=== PATIENT | male | born 1955 | race Caucasian/White ===

== ENCOUNTER → 2017-08-29 | Outpatient (CLI) | payer OTHER ==
[2017-08-29 07:34] LABS: Basophils % (A) 0 %; CHCM 32.5; Eosinophils # (A) 0.1 k/uL (0-0.7); Eosinophils % (A) 1 %; HCT 50.6 % (39.0-53.0); HDW 2.36; Luc # (Auto) 0.08; Luc % (Auto) 2; Lymphocytes # (A) 1.7 k/uL (1.0-4.8); Lymphocytes % (A) 32 %; MCH 30.4 pg (25.0-35.0); MCHC 31.6 g/dL (31.0-37.0); Mean Platelet Volume 6.9; Monocytes # (A) 0.4 k/uL (0-1.0); Monocytes % (A) 7 %; Neutrophils # (A) 3.2 k/uL (1.3-7.7); Neutrophils % (A) 58 %; RBC 5.27 m/uL (4.30-5.90); WBC 5.4 k/uL (3.8-10.6); WBC (Perox) 4.85
[2017-08-29 07:44] LABS: ALT 43 U/L (21-72); AST 23 U/L (17-59); Alkaline Phosphatase 85 U/L (38-126); Anion Gap 9 mmol/L; Blood Urea Nitrogen 18 mg/dL (9-20); Calcium 9.7 mg/dL (8.4-10.2); Carbon Dioxide 26 mmol/L (22-30); Chloride 106 mmol/L (98-107); Cholesterol 174 mg/dL (<200); Glucose 115 mg/dL (74-99); HDL Cholesterol 66 mg/dL (40-60); Non-African American GFR(MDRD) >60 (>60 ml/min/1.73 sqM); Sodium 141 mmol/L (137-145); Total Bilirubin 0.7 mg/dL (0.2-1.3); Total Protein 7.6 g/dL (6.3-8.2)
== END | disposition home or self-care (01) ==
LOC: LABWHC1 06:54
PROVIDERS: ATTEND Internal Medicine Geriatric Medicine
DX: I10 Essential (primary) hypertension (principal); E11.65 Type 2 diabetes mellitus with hyperglycemia; E78.5 Hyperlipidemia, unspecified
CPT/HCPCS: 36415; 80053; 80061; 83036; 84439; 84443; 85025

== ENCOUNTER → 2018-05-14 | Outpatient (CLI) | payer OTHER ==
--- NOTE | 2018-05-14 14:42 | XR ---
EXAMINATION TYPE: XR wrist complete RT DATE OF EXAM: 05/14/2018 COMPARISON: NONE HISTORY: Pain TECHNIQUE: 4 views submitted FINDINGS: There is a subtle lucency through the intra-articular portion of the distal radius. Finding appears to be located laterally and posteriorly. Correlate with point tenderness. Vascular calcification noted. Remaining osseous structures are intact. IMPRESSION: 1. Findings are suspicious for hairline nondisplaced fracture intra-articular distal radius. Correlat e with point tenderness as discussed above.
== END | disposition home or self-care (01) ==
LOC: RADXRMAIN 14:18
PROVIDERS: ATTEND Emergency Medicine
DX: S63.501A Unspecified sprain of right wrist, initial encounter (principal)

== ENCOUNTER → 2018-07-02 | Outpatient (CLI) | payer OTHER ==
[2018-07-02 07:37] LABS: Basophils % (A) 1 %; Eosinophils # (A) 0.1 k/uL (0-0.7); Eosinophils % (A) 2 %; HCT 47.6 % (39.0-53.0); HGB 15.3 gm/dL (13.0-17.5); Lymphocytes # (A) 1.7 k/uL (1.0-4.8); Lymphocytes % (A) 31 %; MCH 29.7 pg (25.0-35.0); MCHC 32.1 g/dL (31.0-37.0); MCV 92.6 fL (80.0-100.0); Mean Platelet Volume 6.5; Monocytes # (A) 0.4 k/uL (0-1.0); Monocytes % (A) 7 %; Neutrophils # (A) 3.2 k/uL (1.3-7.7); Neutrophils % (A) 58 %; Platelet Count 264 k/uL (150-450); RBC 5.14 m/uL (4.30-5.90); RDW 12.7 % (11.5-15.5); WBC 5.5 k/uL (3.8-10.6)
[2018-07-02 11:20] LABS: ALT 39 U/L (21-72); AST 22 U/L (17-59); Albumin 4.5 g/dL (3.5-5.0); Alkaline Phosphatase 88 U/L (38-126); Anion Gap 9 mmol/L; Blood Urea Nitrogen 17 mg/dL (9-20); Calcium 9.5 mg/dL (8.4-10.2); Carbon Dioxide 27 mmol/L (22-30); Chloride 105 mmol/L (98-107); Cholesterol 125 mg/dL (<200); Glucose 117 mg/dL (74-99); HDL Cholesterol 50 mg/dL (40-60); LDL Cholesterol,Calculated 59 mg/dL (0-99); Potassium 4.7 mmol/L (3.5-5.1); Sodium 141 mmol/L (137-145); Total Bilirubin 0.5 mg/dL (0.2-1.3); Total Protein 7.4 g/dL (6.3-8.2); Triglycerides 82 mg/dL (<150)
[2018-07-02 11:37] LABS: T4, Free (Free Thyroxine) 0.92 ng/dL (0.78-2.19)
[2018-07-02 11:51] LABS: Prostate Specific Antigen 0.79 ng/mL (0.00-4.00)
[2018-07-02 15:17] LABS: Hemoglobin A1C 6.6 % (4.0-6.0)
== END | disposition home or self-care (01) ==
LOC: LABWHC1 06:30
PROVIDERS: ATTEND Internal Medicine Geriatric Medicine
DX: E11.65 Type 2 diabetes mellitus with hyperglycemia (principal); R00.1 Bradycardia, unspecified; E78.5 Hyperlipidemia, unspecified; N40.0 Benign prostatic hyperplasia without lower urinary tract symptoms
CPT/HCPCS: 36415; 80053; 80061; 83036; 84153; 84439; 84443; 85025

== ENCOUNTER → 2018-10-16 | Outpatient (CLI) | payer OTHER ==
[2018-10-16 11:20] LABS: Albumin 4.7 g/dL (3.80-4.90); Albumin/Globulin Ratio 2.76 (1.20-2.10); Anion Gap 7.3 mmol/L (4.00-12.00); Calcium 9.4 mg/dL (8.7-10.3); Carbon Dioxide 25.7 mmol/L (21.6-31.8); Globulin 1.7 g/dL (1.6-3.3); Potassium 4.8 mmol/L (3.5-5.5); Total Bilirubin 0.6 mg/dL (0.3-1.2); Total Protein 6.4 g/dL (6.2-8.2)
[2018-10-16 13:11] LABS: Hemoglobin A1C 6.2 % (4.0-6.0)
== END | disposition home or self-care (01) ==
LOC: LABWHC1 06:41
PROVIDERS: ATTEND Internal Medicine Geriatric Medicine
DX: E11.65 Type 2 diabetes mellitus with hyperglycemia (principal)
CPT/HCPCS: 36415; 80053; 83036

== ENCOUNTER → 2018-11-16 | Outpatient (CLI) | payer OTHER ==
--- NOTE | 2018-11-16 10:42 | XR ---
EXAMINATION TYPE: XR lumbar spine 2 or 3V DATE OF EXAM: 11/16/2018 CLINICAL HISTORY: pain TECHNIQUE: Three views of the lumbar spine are submitted. COMPARISON: None. FINDINGS: There are 5 lumbar type vertebral bodies identified. The lumbar spine shows satisfactory alignment w ithout evidence of acute fracture or dislocation. Vertebral body heights are within normal limits. Se wendy degenerative disc space narrowing noted at all levels with ventral spondylosis and facet joint a rthropathy. The overlying soft tissue appears unremarkable. IMPRESSION: No acute fracture or dislocation is seen in the lumbar spine. ICD 10 NO FRACTURE, INITIAL EVALUATION
== END ==
LOC: RADXRMAIN 09:05
PROVIDERS: ATTEND Internal Medicine Geriatric Medicine
DX: M54.5 Low back pain (principal)
CPT/HCPCS: 72100

== ENCOUNTER → 2018-12-26 | Outpatient (CLI) | payer OTHER ==
--- NOTE | 2018-12-26 15:33 | XR ---
EXAMINATION TYPE: XR lumbar spine 2 or 3V DATE OF EXAM: 12/26/2018 CLINICAL HISTORY: pain TECHNIQUE: Three views of the lumbar spine are submitted. COMPARISON: 11/16/2018 FINDINGS: Rotoscoliosis lumbar spine convex to the right. Severe multilevel degenerative disc space narrowing a nd spondylosis. Severe facet joint arthropathy. No evidence for compression fracture or malalignment. IMPRESSION: Severe degenerative changes as discussed. ICD 10 NO FRACTURE, INITIAL EVALUATION
== END ==
LOC: RADXRMAIN 15:10
PROVIDERS: ATTEND Emergency Medicine
DX: M47.816 Spondylosis without myelopathy or radiculopathy, lumbar region (principal)
CPT/HCPCS: 72100

== ENCOUNTER 2019-03-23 08:24 | Emergency (ER) | payer OTHER ==
[2019-03-23 08:43] VITALS: BP 128/73; PULSE 71; RESP 18; TEMP 97.8
--- NOTE | 2019-03-23 09:20 | XR ---
EXAMINATION TYPE: XR finger LT , 3 VIEWS DATE OF EXAM ORDERED: 03/23/2019 HISTORY: Pain. COMPARISON: None. FINDINGS: There is mild joint space loss in the DIP joint. No fracture or dislocation is seen. IMPRESSION: NO ACUTE OSSEOUS LESION.
--- NOTE | 2019-03-23 09:42 | ED ---
Upper Extremity HPI - General Chief Complaint: Extremity Injury, Upper Stated Complaint: left pinky finger injury Time Seen by Provider: 03/23/19 08:49 Source: patient, RN notes reviewed Mode of arrival: ambulatory Limitations: no limitations - History of Present Illness Initial Comments: 63-year-old male present emergency department with chief complaint of left hand fifth digit injury. 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 Patient states that the pain is worsened since Sunday. Patient states the bruising has worsened. Patient had no open laceration associated with it. No paresthesias. - Related Data Allergies Allergy/AdvReac Type Severity Reaction Status Date / Time Penicillins Allergy Anaphylaxis Verified 03/23/19 08:43 Sulfa (Sulfonamide Allergy Anaphylaxis Verified 03/23/19 08:43 Antibiotics) Review of Systems ROS Statement: Those systems with pertinent positive or pertinent negative responses have been documented in the HPI. ROS Other: All systems not noted in ROS Statement are negative. Past Medical History Past Medical History: Diabetes Mellitus, Hyperlipidemia, Hypertension History of Any Multi-Drug Resistant Organisms: None Reported Past Surgical History: No Surgical Hx Reported Past Psychological History: No Psychological Hx Reported Smoking Status: Never smoker Past Alcohol Use History: None Reported Past Drug Use History: None Reported General Exam Limitations: no limitations General appearance: alert, in no apparent distress Head exam: Present: atraumatic, normocephalic, normal inspection Respiratory exam: Present: normal lung sounds bilaterally. Absent: respiratory distress, wheezes, rales, rhonchi, stridor Cardiovascular Exam: Present: regular rate, normal rhythm, normal heart sounds. Absent: systolic murmur, diastolic murmur, rubs, gallop, clicks Extremities exam: Present: other (Left hand fifth digit there is a subungual hematoma noted, full range of motion neurovascular intact) Course Vital Signs 03/23/19 08:40 Temperature 97.8 F Pulse Rate 71 Respiratory 18 Rate Blood Pressure 128/73 O2 Sat by Pulse 96 Oximetry Procedures - Procedures Initial comment: Electrocautery was used to place a hole in the left hand fifth digit nail to relieve subungual hematoma Medical Decision Making - Medical Decision Making 63-year-old male present for left hand fifth digit injury. X-ray was obtained no acute fracture. Patient relief with subungual hematoma relief Disposition Clinical Impression: Subungual hematoma of digit of hand Disposition: HOME SELF-CARE Condition: Stable Instructions (If sedation given, give patient instructions): Subungual Hematoma (ED) Additional Instructions: Please return to the Emergency Department if symptoms worsen or any other concerns. Is patient prescribed a controlled substance at d/c from ED?: No Referrals: Panfilo Adame MD [Primary Care Provider] - 1-2 days Time of Disposition: 09:41
== END 2019-03-23 09:52 | disposition home or self-care (01) ==
LOC: EC 08:24
DX: S60.152A Contusion of left little finger with damage to nail, initial encounter (principal); Z88.0 Allergy status to penicillin; Z88.2 Allergy status to sulfonamides; W23.0XXA Caught, crushed, jammed, or pinched between moving objects, initial encounter; Y92.69 Other specified industrial and construction area as the place of occurrence of the external cause; Y99.0 Civilian activity done for income or pay
CPT/HCPCS: 11740; 99283

== ENCOUNTER 2019-05-29 05:21 | Emergency (ER) | payer OTHER ==
[2019-05-29] MEDS ORDERED: SODIUM CHLORIDE 0.9% 500 ML 500 ML IV STA (06:02)
[2019-05-29] MEDS ORDERED: MECLIZINE 12.5 MG TAB PO STA (06:31)
[2019-05-29] MEDS ORDERED: SODIUM CHLORIDE 0.9% 1,000 ML IV ONE ×2 (06:32→07:30)
--- NOTE | 2019-05-29 06:46 | ED ---
Dizziness HPI - General Chief Complaint: Dizziness Stated Complaint: dizziness Time Seen by Provider: 05/29/19 06:01 Source: patient, family, RN notes reviewed Mode of arrival: ambulatory Limitations: no limitations - History of Present Illness Initial Comments: 64-year-old male presents emergency Department chief complaint of dizziness. Patient states had a history of vertigo states that he usually does take some Antivert and symptoms get better. Patient's name. The last day or so he's had worsening symptoms when he lays down quickly or stands up or bends over. Patient denies any current headache, blurred vision, focal weakness, nausea vomiting. Denies any chest pain or palpitations. Patient states that he has had, possibly for deformity dehydrated because symptoms to worsen. - Related Data Previous Rx's Medication Instructions Recorded Meclizine [Antivert] 25 mg PO TID PRN #15 tab 05/29/19 Allergies Allergy/AdvReac Type Severity Reaction Status Date / Time Penicillins Allergy Anaphylaxis Verified 05/29/19 05:36 Sulfa (Sulfonamide Allergy Anaphylaxis Verified 05/29/19 05:36 Antibiotics) Review of Systems ROS Statement: Those systems with pertinent positive or pertinent negative responses have been documented in the HPI. ROS Other: All systems not noted in ROS Statement are negative. Past Medical History Past Medical History: Diabetes Mellitus, Hyperlipidemia, Hypertension Additional Past Medical History / Comment(s): vertigo History of Any Multi-Drug Resistant Organisms: None Reported Past Surgical History: No Surgical Hx Reported Past Psychological History: No Psychological Hx Reported Smoking Status: Never smoker Past Alcohol Use History: None Reported Past Drug Use History: None Reported General Exam Limitations: no limitations General appearance: alert, in no apparent distress Head exam: Present: atraumatic, normocephalic, normal inspection Eye exam: Present: normal appearance, PERRL, EOMI. Absent: scleral icterus, co njunctival injection, periorbital swelling ENT exam: Present: normal exam, normal oropharynx, mucous membranes moist, TM's normal bilaterally Neck exam: Present: normal inspection, full ROM. Absent: tenderness, meningismus, lymphadenopathy Respiratory exam: Present: normal lung sounds bilaterally. Absent: respiratory distress, wheezes, rales, rhonchi, stridor Cardiovascular Exam: Present: regular rate, normal rhythm, normal heart sounds. Absent: systolic murmur, diastolic murmur, rubs, gallop, clicks GI/Abdominal exam: Present: soft, normal bowel sounds. Absent: distended, tenderness, guarding, rebound, rigid Neurological exam: Present: alert, oriented X3, CN II-XII intact, reflexes normal. Absent: motor sensory deficit Skin exam: Present: warm, dry, intact, normal color. Absent: rash Course Vital Signs 05/29/19 05/29/19 05:32 07:44 Temperature 98.1 F 98.0 F Pulse Rate 76 71 Respiratory 20 14 Rate Blood Pressure 151/82 132/78 O2 Sat by Pulse 99 99 Oximetry EKG Findings - EKG Comments: EKG Findings:: EKG performed at 6:34 sinus bradycardia with a right bundle, rate of 59 CT 132 QRS 126 QT/QTC 424/419 Medical Decision Making - Medical Decision Making 64-year-old male present emergency apartment for dizziness. Patient symptoms are consistent with vertigo. Patient was hydrated given Antivert symptoms are improving. Patient had normal CT normal limits normal g. Patient has no ataxia no focal weakness. Patient will be discharged at this time return parameters were discussed. - Lab Data Result diagrams: 05/29/19 06:20 05/29/19 06:20 Lab Results 05/29/19 05/29/19 05/29/19 Range/Units 06:20 06:20 06:20 WBC 5.8 (3.8-10.6) k/uL RBC 4.89 (4.30-5.90) m/uL Hgb 15.3 (13.0-17.5) gm/dL Hct 45.6 (39.0-53.0) % MCV 93.2 (80.0-100.0) fL MCH 31.3 (25.0-35.0) pg MCHC 33.6 (31.0-37.0) g/dL RDW 13.7 (11.5-15.5) % Plt Count 269 (150-450) k/uL Neutrophils % 65 % Lymphocytes % 25 % Monocytes % 7 % Eosinophils % 1 % Basophils % 0 % Neutrophils # 3.8 (1.3-7.7) k/uL Lymphocytes # 1.5 (1.0-4.8) k/uL Monocytes # 0.4 (0-1.0) k/uL Eosinophils # 0.1 (0-0.7) k/uL Basophils # 0.0 (0-0.2) k/uL Sodium 141 (137-145) mmol/L Potassium 4.7 (3.5-5.1) mmol/L Chloride 105 (98-107) mmol/L Carbon Dioxide 26 (22-30) mmol/L Anion Gap 10 mmol/L BUN 18 (9-20) mg/dL Creatinine 0.81 (0.66-1.25) mg/dL Est GFR (CKD-EPI)AfAm >90 (>60 ml/min/1.73 sqM) Est GFR (CKD-EPI)NonAf >90 (>60 ml/min/1.73 sqM) Glucose 89 (74-99) mg/dL Calcium 9.5 (8.4-10.2) mg/dL Total Bilirubin 0.5 (0.2-1.3) mg/dL AST 24 (17-59) U/L ALT 27 (21-72) U/L Alkaline Phosphatase 112 (38-126) U/L Troponin I <0.012 (0.000-0.034) ng/mL Total Protein 7.3 (6.3-8.2) g/dL Albumin 4.6 (3.5-5.0) g/dL Urine Color Urine Appearance (Clear) Urine pH (5.0-8.0) Ur Specific Bolt (1.001-1.035) Urine Protein (Negative) Urine Glucose (UA) (Negative) Urine Ketones (Negative) Urine Blood (Negative) Urine Nitrite (Negative) Urine Bilirubin (Negative) Urine Urobilinogen (<2.0) mg/dL Ur Leukocyte Esterase (Negative) 05/29/19 Range/Units 06:20 WBC (3.8-10.6) k/uL RBC (4.30-5.90) m/uL Hgb (13.0-17.5) gm/dL Hct (39.0-53.0) % MCV (80.0-100.0) fL MCH (25.0-35.0) pg MCHC (31.0-37.0) g/dL RDW (11.5-15.5) % Plt Count (150-450) k/uL Neutrophils % % Lymphocytes % % Monocytes % % Eosinophils % % Basophils % % Neutrophils # (1.3-7.7) k/uL Lymphocytes # (1.0-4.8) k/uL Monocytes # (0-1.0) k/uL Eosinophils # (0-0.7) k/uL Basophils # (0-0.2) k/uL Sodium (137-145) mmol/L Potassium (3.5-5.1) mmol/L Chloride (98-107) mmol/L Carbon Dioxide (22-30) mmol/L Anion Gap mmol/L BUN (9-20) mg/dL Creatinine (0.66-1.25) mg/dL Est GFR (CKD-EPI)AfAm (>60 ml/min/1.73 sqM) Est GFR (CKD-EPI)NonAf (>60 ml/min/1.73 sqM) Glucose (74-99) mg/dL Calcium (8.4-10.2) mg/dL Total Bilirubin (0.2-1.3) mg/dL AST (17-59) U/L ALT (21-72) U/L Alkaline Phosphatase (38-126) U/L Troponin I (0.000-0.034) ng/mL Total Protein (6.3-8.2) g/dL Albumin (3.5-5.0) g/dL Urine Color Yellow Urine Appearance Clear (Clear) Urine pH 6.0 (5.0-8.0) Ur Specific Bolt 1.013 (1.001-1.035) Urine Protein Negative (Negative) Urine Glucose (UA) Negative (Negative) Urine Ketones Negative (Negative) Urine Blood Negative (Negative) Urine Nitrite Negative (Negative) Urine Bilirubin Negative (Negative) Urine Urobilinogen <2.0 (<2.0) mg/dL Ur Leukocyte Esterase Negative (Negative) Disposition Clinical Impression: Vertigo Disposition: HOME SELF-CARE Condition: Stable Instructions (If sedation given, give patient instructions): Dizziness (ED) Additional Instructions: Please return to the Emergency Department if symptoms worsen or any other concerns. Prescriptions: Meclizine [Antivert] 25 mg PO TID PRN #15 tab PRN Reason: Vertigo Is patient prescribed a controlled substance at d/c from ED?: No Referrals: Panfilo Adame MD [Primary Care Provider] - 1-2 days Time of Disposition: 07:53
[2019-05-29 07:12] LABS: Appearance,Urine Clear (Clear); Bilirubin,Urine Negative (Negative); Blood,Urine Negative (Negative); Color,Urine Yellow; Glucose,Urine (UA) Negative (Negative); Ketones,Urine Negative (Negative); Leukocyte Esterase,Urine Negative (Negative); Nitrite,Urine Negative (Negative); Protein,Urine Negative (Negative); Specific Gravity,Urine 1.013 (1.001-1.035); Urobilinogen,Urine <2.0 mg/dL (<2.0)
[2019-05-29 07:13] LABS: Basophils % (A) 0 %; Eosinophils # (A) 0.1 k/uL (0-0.7); Eosinophils % (A) 1 %; HCT 45.6 % (39.0-53.0); HGB 15.3 gm/dL (13.0-17.5); Lymphocytes # (A) 1.5 k/uL (1.0-4.8); Lymphocytes % (A) 25 %; MCH 31.3 pg (25.0-35.0); MCHC 33.6 g/dL (31.0-37.0); MCV 93.2 fL (80.0-100.0); Mean Platelet Volume 6.9; Monocytes # (A) 0.4 k/uL (0-1.0); Monocytes % (A) 7 %; Neutrophils # (A) 3.8 k/uL (1.3-7.7); Neutrophils % (A) 65 %; Platelet Count 269 k/uL (150-450); RBC 4.89 m/uL (4.30-5.90); RDW 13.7 % (11.5-15.5); WBC 5.8 k/uL (3.8-10.6)
[2019-05-29 07:16] LABS: ALT 27 U/L (21-72); AST 24 U/L (17-59); African American GFR (CKD) >90 (>60 ml/min/1.73 sqM); Albumin 4.6 g/dL (3.5-5.0); Alkaline Phosphatase 112 U/L (38-126); Anion Gap 10 mmol/L; Blood Urea Nitrogen 18 mg/dL (9-20); Calcium 9.5 mg/dL (8.4-10.2); Carbon Dioxide 26 mmol/L (22-30); Chloride 105 mmol/L (98-107); Glucose 89 mg/dL (74-99); Potassium 4.7 mmol/L (3.5-5.1); Sodium 141 mmol/L (137-145); Total Bilirubin 0.5 mg/dL (0.2-1.3); Total Protein 7.3 g/dL (6.3-8.2)
[2019-05-29] MEDS ORDERED: SODIUM CHLORIDE 0.9% 500 ML 500 ML IV ONE (07:30)
[2019-05-29] MEDS ORDERED: MECLIZINE 25 MG TAB PO ONE (07:30)
--- NOTE | 2019-05-29 07:34 | CT ---
EXAMINATION TYPE: CT brain wo con DATE OF EXAM: 05/29/2019 COMPARISON: None HISTORY: Pain and dizziness CT DLP: 1094.4 mGycm Automated exposure control for dose reduction was used. TECHNIQUE: CT scan of the head is performed without contrast. FINDINGS: There is no acute intracranial hemorrhage, mass effect, or midline shift identified. The ventricles and sulci are within normal limits in size. The globes are intact and the visualized sinuses are rudy ar. Frontal dermal calcifications are incidentally noted. Partially visualized contra bullosa are als o incidentally noted. IMPRESSION: No acute intracranial hemorrhage, mass effect, or midline shift is seen.
[2019-05-29 07:46] VITALS: BP 132/78; PULSE 71; RESP 14; TEMP 98
== END 2019-05-29 08:04 | disposition home or self-care (01) ==
LOC: EC 05:21
DX: R42 Dizziness and giddiness (principal); Z88.0 Allergy status to penicillin; Z88.2 Allergy status to sulfonamides
CPT/HCPCS: 36415; 70450; 80053; 81003; 84484; 85025; 93005; 96360; 99284

== ENCOUNTER 2019-09-25 02:10 | Emergency (ER) | payer BC ==
[2019-09-25 02:20] VITALS: TEMP 98.2
[2019-09-25] MEDS ORDERED: LIDOCAINE 5% PATCH TOPICAL STA (02:31)
[2019-09-25] MEDS ORDERED: KETOROLAC 30 MG/ML 1 ML VIAL IM STA (02:31)
--- NOTE | 2019-09-25 03:03 | ED ---
General Adult HPI - General Chief complaint: Abdominal Pain Stated complaint: rib pain Time Seen by Provider: 09/25/19 02:24 Source: patient, family Mode of arrival: ambulatory Limitations: no limitations - History of Present Illness Initial comments: 64-year-old male patient presents to the emergency department today for evaluation of left rib pain. Patient states that the rib started hurting a couple of days ago during a coughing episode. Patient states that yesterday he lifted a large heavy gift which caused the pain to worsen. States he did feel a pop in his side. Patient states that the pain significantly increases with any coughing, sneezing, or blowing his nose. He denies any shortness of breath or hemoptysis. States he does have an occasional cough but is getting over a cold. Denies any history of rib injury. States he did take a muscle relaxer yesterday without any relief. Denies use of other medications for symptoms. Patient denies any recent rash, fever, chills, chest pain, abdominal pain, nausea, vomiting, diarrhea, constipation, back pain, numbness, tingling, dizziness, weakness, hematuria, dysuria, urinary urgency, urinary frequency, headache, visual changes, or any other complaints. - Related Data Previous Rx's Medication Instructions Recorded Meclizine [Antivert] 25 mg PO TID PRN #15 tab 05/29/19 Ibuprofen [Motrin] 600 mg PO Q8HR PRN #30 tab 09/25/19 Lidocaine 5% Patch [Lidoderm] 1 patch TOPICAL DAILY #30 patch 09/25/19 Allergies Allergy/AdvReac Type Severity Reaction Status Date / Time Penicillins Allergy Anaphylaxis Verified 09/25/19 02:20 Sulfa (Sulfonamide Allergy Anaphylaxis Verified 09/25/19 02:20 Antibiotics) Review of Systems ROS Statement: Those systems with pertinent positive or pertinent negative responses have been documented in the HPI. ROS Other: All systems not noted in ROS Statement are negative. Past Medical History Past Medical History: Diabetes Mellitus, Hyperlipidemia, Hypertension Additional Past Medical History / Comment(s): vertigo History of Any Multi-Drug Resistant Organisms: None Reported Past Surgical History: No Surgical Hx Reported Past Psychological History: No Psychological Hx Reported Smoking Status: Never smoker Past Alcohol Use History: None Reported Past Drug Use History: None Reported General Exam Limitations: no limitations General appearance: alert, in no apparent distress, other (This is a well- developed, well-nourished adult male patient in no acute distress. Vital signs upon presentation are temperature 98.2F, pulse 98, respirations 20, blood pressure 172/92, pulse ox 98% on room air.) Eye exam: Present: normal appearance, PERRL, EOMI. Absent: scleral icterus, conjunctival injection, periorbital swelling ENT exam: Present: normal exam, normal oropharynx, mucous membranes moist Respiratory exam: Present: normal lung sounds bilaterally, chest wall tenderness (Left lateral rib tenderness). Absent: respiratory distress, wheezes, rales, rhonchi, stridor Cardiovascular Exam: Present: regular rate, normal rhythm, normal heart sounds. Absent: systolic murmur, diastolic murmur, rubs, gallop, clicks GI/Abdominal exam: Present: soft, normal bowel sounds. Absent: distended, tenderness, guarding, rebound, rigid Neurological exam: Present: alert, oriented X3, CN II-XII intact Psychiatric exam: Present: normal affect, normal mood Skin exam: Present: warm, dry, intact, normal color. Absent: rash Course Vital Signs 09/25/19 02:15 Temperature 98.2 F Pulse Rate 98 Respiratory 20 Rate Blood Pressure 172/92 O2 Sat by Pulse 98 Oximetry Medical Decision Making - Medical Decision Making 64-year-old male patient presents to the emergency department today for evaluation of left rib pain after severe coughing episode. Physical examination reveals tenderness over the left lateral ribs. Lungs are clear to auscultation with good air movement. Chest x-ray with rib series was performed and shows no evidence of acute displaced rib fracture. I did discuss findings and results with the patient. We did discuss possibility of muscle injury, soft tissue injury, or occult rib fracture. He'll be treated with anti-inflammatory medication, Lidoderm patch, and given a starter pack for Tylenol codeine. He is instructed to follow-up with his primary care physician for recheck in 1-2 days. Return parameters were discussed in detail. He verbalizes understanding and agrees with this plan. Disposition Clinical Impression: Rib pain on left side Disposition: HOME SELF-CARE Condition: Good Instructions (If sedation given, give patient instructions): Muscle Strain (DC), Rib Fracture (ED) Additional Instructions: Take medications as directed. Apply ice to the painful areas. Follow up to primary care physician for recheck in 1-2 days. Return to the emergency department immediately for any new, worsening, or concerning symptoms. Prescriptions: Lidocaine 5% Patch [Lidoderm] 1 patch TOPICAL DAILY #30 patch Ibuprofen [Motrin] 600 mg PO Q8HR PRN #30 tab PRN Reason: Pain Is patient prescribed a controlled substance at d/c from ED?: No Referrals: Panfilo Adame MD [Primary Care Provider] - 1-2 days Time of Disposition: 03:49
--- NOTE | 2019-09-25 03:39 | XR ---
EXAMINATION TYPE: XR ribs LT w pa chest xray DATE OF EXAM: 09/25/2019 COMPARISON: NONE HISTORY: Left rib pain TECHNIQUE: 5 views FINDINGS: Heart and mediastinum are normal. Lungs are clear. Diaphragm is normal. There is no pleural effusion or pneumothorax. Left ribs appear intact. IMPRESSION: Negative left rib exam. No active cardiopulmonary disease.
[2019-09-25] MEDS ORDERED: ACET/COD 300 MG/30 MG STARTER PACK 6 TAB BTL PO STA (03:47)
[2019-09-25 04:29] VITALS: BP 168/83; PULSE 87; RESP 18
== END 2019-09-25 04:29 | disposition home or self-care (01) ==
LOC: EC 02:10
DX: R07.81 Pleurodynia (principal); R05 Cough; Z88.0 Allergy status to penicillin; Z88.2 Allergy status to sulfonamides
CPT/HCPCS: 71101; 99284; 96372; J1885

== ENCOUNTER → 2019-10-08 | Outpatient (CLI) | payer BC ==
[2019-10-08 16:39] LABS: African American GFR (CKD) 93.1 (60.0-200.0); Albumin 4.8 g/dL (3.80-4.90); Albumin/Globulin Ratio 2.67 (1.60-3.17); Anion Gap 5.2 mmol/L (4.00-12.00); Calcium 9.6 mg/dL (8.7-10.3); Carbon Dioxide 29.8 mmol/L (21.6-31.8); Chol/HDL Ratio 3.31; Globulin 1.8 g/dL (1.6-3.3); LDL Cholesterol,Calculated 78.8 mg/dL (0.0-131.0); Non-African American GFR(CKD) 80.3 (60.0-200.0); Potassium 4.8 mmol/L (3.5-5.5); Total Bilirubin 0.6 mg/dL (0.2-1.2); Total Protein 6.6 g/dL (6.2-8.2); VLDL Calculation 32.2 mg/dL (5.00-40.00)
[2019-10-08 18:29] LABS: Microalbumin Creatinine Ratio <30 mg/g Creat (0-30); Urine Creatinine 68.9 mg/dL
[2019-10-08 19:13] LABS: Hemoglobin A1C 6.2 % (4.0-6.0)
== END | disposition home or self-care (01) ==
LOC: LABWHC1 07:23
PROVIDERS: ATTEND Internal Medicine Geriatric Medicine
DX: E11.65 Type 2 diabetes mellitus with hyperglycemia (principal)
CPT/HCPCS: 36415; 80053; 80061; 82043; 82570; 83036

== ENCOUNTER → 2019-10-09 | Outpatient (CLI) | payer BC ==
[2019-10-10 08:28] VITALS: BMI 32.7
== END | disposition home or self-care (01) ==
LOC: DBWHC3 13:53
PROVIDERS: ATTEND Internal Medicine Geriatric Medicine
DX: E11.65 Type 2 diabetes mellitus with hyperglycemia (principal)
CPT/HCPCS: 97804

== ENCOUNTER → 2020-03-24 | Outpatient (CLI) | payer BC ==
--- NOTE | 2020-03-24 14:46 | XR ---
EXAMINATION TYPE: XR Hip Limited RT DATE OF EXAM: 03/24/2020 CLINICAL HISTORY: Pain TECHNIQUE: AP and frogleg views of the right hip are obtained. COMPARISON: None. FINDINGS: There is no acute fracture/dislocation evident in the right hip. Severe degenerative narro wing noted with subchondral sclerosis. The overlying soft tissue appears unremarkable. IMPRESSION: There is no acute fracture or dislocation in the right hip.
== END | disposition home or self-care (01) ==
LOC: RADXRMAIN 13:15
PROVIDERS: ATTEND Internal Medicine Geriatric Medicine
DX: M25.551 Pain in right hip (principal)
CPT/HCPCS: 73501

== ENCOUNTER → 2020-05-11 | Outpatient (CLI) | payer BC ==
[2020-05-11 08:16] LABS: Basophils % (A) 1 %; Eosinophils # (A) 0.1 k/uL (0-0.7); Eosinophils % (A) 2 %; HCT 44.3 % (39.0-53.0); HGB 14.4 gm/dL (13.0-17.5); Lymphocytes # (A) 1.4 k/uL (1.0-4.8); Lymphocytes % (A) 26 %; MCH 30.4 pg (25.0-35.0); MCHC 32.4 g/dL (31.0-37.0); MCV 93.7 fL (80.0-100.0); Mean Platelet Volume 6.8; Monocytes # (A) 0.3 k/uL (0-1.0); Monocytes % (A) 5 %; Neutrophils # (A) 3.5 k/uL (1.3-7.7); Neutrophils % (A) 65 %; Platelet Count 277 k/uL (150-450); RBC 4.73 m/uL (4.30-5.90); RDW 12.8 % (11.5-15.5); WBC 5.4 k/uL (3.8-10.6)
[2020-05-11 11:21] LABS: Microalbumin Creatinine Ratio <30 mg/g Creat (0-30); Urine Creatinine 105.5 mg/dL
[2020-05-11 15:45] LABS: Hemoglobin A1C 6.3 % (4.0-6.0)
[2020-05-11 16:17] LABS: African American GFR (CKD) 110.2 (60.0-200.0); Albumin 4.5 g/dL (3.80-4.90); Albumin/Globulin Ratio 2.37 (1.60-3.17); Anion Gap 9.4 mmol/L (4.00-12.00); BUN/Creat Ratio 21.25 Ratio (12.00-20.00); Calcium 9.4 mg/dL (8.7-10.3); Carbon Dioxide 24.6 mmol/L (21.6-31.8); Chol/HDL Ratio 3.32; Globulin 1.9 g/dL (1.6-3.3); LDL Cholesterol,Calculated 76.4 mg/dL (0.0-131.0); Non-African American GFR(CKD) 95.1 (60.0-200.0); Potassium 4.6 mmol/L (3.5-5.5); Total Bilirubin 0.5 mg/dL (0.3-1.2); Total Protein 6.4 g/dL (6.2-8.2); VLDL Calculation 25.6 mg/dL (5.00-40.00)
[2020-05-11 16:24] LABS: Prostate Specific Antigen 1.2 ng/mL (0.0-4.5)
== END | disposition home or self-care (01) ==
LOC: LABWHC1 07:06
PROVIDERS: ATTEND Internal Medicine Geriatric Medicine
DX: Z00.00 Encounter for general adult medical examination without abnormal findings (principal); E11.65 Type 2 diabetes mellitus with hyperglycemia; E78.5 Hyperlipidemia, unspecified; N40.0 Benign prostatic hyperplasia without lower urinary tract symptoms
CPT/HCPCS: 36415; 80053; 80061; 82043; 82570; 83036; 84153; 84443; 85025

== ENCOUNTER → 2020-06-30 | Outpatient (CLI) | payer BC ==
[2020-06-30 07:47] LABS: Appearance,Urine Clear (Clear); Bilirubin,Urine Negative (Negative); Blood,Urine Negative (Negative); Color,Urine Yellow; Glucose,Urine (UA) Negative (Negative); Ketones,Urine Negative (Negative); Leukocyte Esterase,Urine Negative (Negative); Nitrite,Urine Negative (Negative); Protein,Urine Negative (Negative); Specific Gravity,Urine 1.016 (1.001-1.035); Urobilinogen,Urine <2.0 mg/dL (<2.0)
[2020-06-30 07:59] LABS: HCT 45.8 % (39.0-53.0); HGB 14.7 gm/dL (13.0-17.5); MCH 29.5 pg (25.0-35.0); MCHC 32.1 g/dL (31.0-37.0); MCV 91.7 fL (80.0-100.0); Mean Platelet Volume 6.7; Platelet Count 287 k/uL (150-450); RBC 4.99 m/uL (4.30-5.90); RDW 12.3 % (11.5-15.5); WBC 6.2 k/uL (3.8-10.6)
[2020-06-30 08:00] LABS: ALT 24 U/L (4-49); AST 25 U/L (17-59); African American GFR (CKD) >90 (>60 ml/min/1.73 sqM); Albumin 4.6 g/dL (3.5-5.0); Alkaline Phosphatase 86 U/L (38-126); Anion Gap 8 mmol/L; Blood Urea Nitrogen 14 mg/dL (9-20); Calcium 9.5 mg/dL (8.4-10.2); Carbon Dioxide 28 mmol/L (22-30); Chloride 105 mmol/L (98-107); Glucose 126 mg/dL (74-99); Non-African American GFR(CKD) >90 (>60 ml/min/1.73 sqM); Potassium 4.9 mmol/L (3.5-5.1); Sodium 141 mmol/L (137-145); Total Bilirubin 0.6 mg/dL (0.2-1.3); Total Protein 7.2 g/dL (6.3-8.2)
[2020-06-30 08:07] LABS: Partial Thromboplastin Time 24.9 sec (22.0-30.0)
== END | disposition home or self-care (01) ==
LOC: LABPAT 06:59
PROVIDERS: ATTEND Orthopaedic Surgery
DX: Z01.812 Encounter for preprocedural laboratory examination (principal)
CPT/HCPCS: 36415; 80053; 81003; 85027; 85610; 85730; 87070

== ENCOUNTER 2020-07-06 05:31 | Day surgery (SDC) | payer BC ==
[2020-06-30 12:39] VITALS: BMI 32.5
[~2020-07-06 05:31] MED LIST: ACETAMINOPHEN TAB 500 MG TAB PO ONE; CLINDAMYCIN 900 MG in DEXTROSE 5% IN WATER 50 ML IVPB ONE; GABAPENTIN 300 MG CAP PO ONE; MELOXICAM 7.5 MG TAB PO ONE; TRANEXAMIC ACID 1,000 MG in SODIUM CHLORIDE 0.9% 100 ML IVPB ONE
[2020-07-06] MEDS ORDERED: ONDANSETRON 4 MG/2 ML VIAL IVP ONE (05:37)
[2020-07-06] MEDS ORDERED: SCOPOLAMINE 1.5MG/72HR PATCH TRANSDERM ONE (05:37)
[2020-07-06] MEDS ORDERED: MIDAZOLAM 2 MG/2 ML VIAL IV PRN (05:37)
[2020-07-06] MEDS ORDERED: DEXAMETHASONE SOD PHOSPHATE 10 MG/ML 1 ML VIAL IV ONE (05:37)
[2020-07-06] MEDS ORDERED: ROPIVACAINE 246.25 MG, EPINEPHrine 0.5 MG, KETOROLAC 30 MG, cloNIDine HCL/PF 80 MCG, WA... MISCELLANE ONE ×5 (06:00)
[2020-07-06] MEDS: LACTATED RINGERS 1,000 ML IV SCH (06:14)
[2020-07-06 06:21] LABS: Glucose,Whole Blood 129 mg/dL (75-99)
[2020-07-06] MEDS ORDERED: ePHEDrine SULFATE/0.9% NACL/PF 50 MG/5 ML SYRINGE IV ONE (06:56)
[2020-07-06] MEDS ORDERED: PHENYLEPHRINE-0.9% NACL SYG 1 MG/10 ML SYRINGE ONE (06:56)
[2020-07-06] MEDS ORDERED: fentaNYL (PF) 50 MCG/ML 2 ML AMP ONE (06:56)
[2020-07-06] MEDS ORDERED: TRANEXAMIC ACID 1,000 MG/10 ML VIAL ONE (06:56)
[2020-07-06] MEDS ORDERED: PROPOFOL 10 MG/ML 20 ML VIAL IV ONE (06:56)
[2020-07-06] MEDS ORDERED: SUCCINYLCHOLINE CHLORIDE VIAL 200 MG/10 ML VIAL IV ONE (06:56)
[2020-07-06] MEDS ORDERED: MIDAZOLAM 2 MG/2 ML VIAL ONE (06:56)
[2020-07-06] MEDS ORDERED: LIDOCAINE 1% INJ 10MG/ML (20 ML MDV) ONE (06:56)
[2020-07-06] MEDS ORDERED: SODIUM CHLORIDE 0.9% 100 ML BAG ONE (06:56)
[2020-07-06] MEDS ORDERED: HYDROmorphone 0.5 MG/0.5 ML SYRINGE IVP PRN ×2 (07:07)
[2020-07-06] MEDS ORDERED: HYDROcodone/APAP 5-325MG 1 EACH TAB PO PRN (07:07)
[2020-07-06] MEDS ORDERED: hydrOXYzine pamoate 25 MG CAP PO PRN (07:07)
[2020-07-06] MEDS ORDERED: HYDROmorphone 1 MG/ML 1 ML SYRINGE IVP PRN (07:07)
[2020-07-06] MEDS ORDERED: diazePAM 5 MG TAB PO PRN (07:07)
[2020-07-06] MEDS ORDERED: NALOXONE 0.4 MG/ML 1 ML VIAL IV PRN (07:07)
[2020-07-06] MEDS ORDERED: ONDANSETRON 4 MG/2 ML VIAL IVP PRN (07:07)
[2020-07-06] MEDS ORDERED: MAGNESIUM HYDROXIDE 2,400 MG/10 ML CUP PO PRN (07:07)
[2020-07-06] MEDS ORDERED: ceFAZolin 3,000 MG in SODIUM CHLORIDE 0.9% IRRIGATIO 3,000 ML IRRIGATION ONE (07:41)
[2020-07-06] MEDS ORDERED: LACTATED RINGERS 1,000 ML IV ONE (08:38)
--- NOTE | 2020-07-06 08:58 | P.OP ---
Date of Procedure: 07/06/20 Preoperative Diagnosis: Severe osteoarthritis right hip Postoperative Diagnosis: Severe osteoarthritis right hip Procedure(s) Performed: Right total hip arthroplasty with a direct anterior approach Implants: Leung and nephew Polarstem size 7 standard Leung & Nephew R3, 3 hole acetabular shell, 58 mm Leung [employer] Nephew reflection 6.5 mm cancellus screw, 20 mm 2 Leung [employer] Nephew R3, XLPE 20 acetabular liner Leung & Nephew Oxinium femoral head 36 m, +4 All components were press-fit. The articulation is Oxinium on polyethylene. Anesthesia: GETA Surgeon: Anil Fletcher Broomcorn Thresher #1: Veda Conrad Estimated Blood Loss (ml): 350 (135 mL returned with Cell Saver) Pathology: other (Femoral head) Condition: stable Disposition: PACU Indications for Procedure: After failure of conservative treatment we discussed the surgical and nonsurgical treatment options at length. Patient wishes to proceed with a total hip arthroplasty with a direct anterior approach. Complications specific to this procedure were discussed at length, including but not limited to infection, leg length discrepancy, dislocation, and nerve injury. Covid-19 was also discussed at length with the patient, and they are aware of the current policies and procedures. The patient was given the option of delaying surgery, but they elect to proceed knowing these risks. Patient is aware of all these complications and informed consent was obtained Operative Findings: The operative findings are consistent with severe osteoarthritis of the right hip Description of Procedure: Patient was seen and evaluated in the preoperative area, consent was reviewed, and the surgical site was marked with a skin marker. Patient was then brought to the operating room and given prophylactic antibiotics intravenously. 1 g of Tranexamic acid was also given. A general anesthetic was administered by the anesthesia department. The patient was then placed on the [place] table with the bony prominences well-padded. The hip area was then prepped and draped in usual sterile fashion. A universal timeout was then performed, which confirmed the patient's name, surgical site, ALLERGIES, and procedure being performed. Next the incision site was located at 1 cm distal and 1 cm lateral to the anterior superior iliac spine. The skin and subcutaneous tissues were sharply incised. Incision was carefully dissected down to the fascia overlying the tensor fascia caren muscle. This fascia was then incised in line with the incision. Next, using blunt finger dissection, the tensor fascia caren muscle was dissected off its investing fascia. The muscle was then carefully retracted laterally with a cobra retractor over the lateral neck of the femur. Next, the circumflex vessels were identified and cauterized using the AquaMantis device. The anterior hip capsule was then exposed. The capsule was then opened and an inverted T fashion. Cobra retractors were then placed intracapsularly. The proximal femur was then visualized. The femoral neck was then osteotomized appropriate level above the lesser trochanter. Small amount of traction was placed with the [place] table. A small wedge of bone was then removed from the remaining femoral head. Next, using a corkscrew femoral head was easily removed from the acetabulum. On gross visual inspection, the femoral head had complete loss of articular cartilage in multiple periarticular osteophytes. Attention was then turned to the acetabulum. the acetabulum was exposed and any remaining labrum was excised. Sequential reaming of the acetabulum was performed using fluoroscopic guidance. When the appropriate size was reached, a trial was then placed. The position and fit of the trial was checked with fluoroscopy. The trial was then removed. Then, using fluoroscopic guidance, the final implant was impacted at 20 of anteversion and 40 of abduction, and fully seated in the acetabulum. 2 screws were then placed in the acetabulum. Again fluoroscopy was used to check position of the screws. Next, the liner was then impacted, with a 20 elevated liner located in the anterior superior quadrant. Component locking was confirmed. Attention was then directed to the femur. With the aid of the [place] table, the femur was externally rotated to approximately 130, extended, and abducted under the opposite leg. A side hook was then placed under the proximal femur, and the side hook elevator was used to elevate the proximal femur. Retractors were then placed. A capsular release was performed, as well as a release of the conjoined tendon, which afforded excellent visualization of the proximal femur. Next, a box osteotome was used to lateralize the proximal femur. A cigar tobacco rehandler was then used to locate the femoral canal. Sequential broaching was then performed with appropriate size which afforded excellent fixation in the proximal femur. A trial was then placed with appropriate head and neck, and the hip was gently reduced with the aid of the [place] table. Fluoroscopy was then used to check position of the components, as well as to ensure equal leg lengths. The hip was then gently dislocated and the trials were then removed. Final implants were then impacted and the hip was again reduced. Final fluoroscopic x-rays confirmed that the components were in anatomic position, as well as equal leg lengths. The hip was also taken through range of motion, and found to be stable. The hip was then copiously irrigated with antibiotic solution with pulsatile lavage. The hip was then irrigated with Irrisept solution. The soft tissues were then injected with a ropivacaine solution, which consisted of 246.25 mg of ropivacaine, 0.5 mg of epinephrine, 30 mg of Toradol, 80 g of clonidine, and 48.45 mL of sterile water, for a total of 100 mL of fluid injected. A second dose of 1 g of Tranexamic acid was also given. the fascia was then closed with 2-0 strata fix suture. The subcutaneous tissue was closed with 3-0 Vicryl. The subcuticular tissue was closed with 3-0 strata fix suture. The skin was then closed with Dermabond glue and a sterile silver dressing. The patient was then transferred to the recovery room in stable condition. The assistant offset press operator JHONNY Rai was required due to the complexity of surgery, and the need for skilled surgical services manager for positioning, draping, exposure, retraction, and closure of the wound.
--- NOTE | 2020-07-06 08:58 | FL ---
EXAMINATION TYPE: FL guidance operating room, XR Hip Limited RT DATE OF EXAM: 07/06/2020 CLINICAL HISTORY: Right hip pain and osteoarthritis. TECHNIQUE: Fluoroscopy. Limited intraoperative views right hip. COMPARISON: None. FINDINGS: Fluoroscopic guidance was provided during right hip replacement procedure performed by Dr. Fletcher. A total of 73 seconds of fluoroscopic time was utilized during the procedure and 3 spot i ntraoperative images are acquired. Intraoperative images acquired show metallic hardware from total right hip arthroplasty satisfactory in position on frontal projection. IMPRESSION: As Above.
[2020-07-06 09:23] LABS: Glucose,Whole Blood 175 mg/dL (75-99)
[2020-07-06] MEDS: HYDROmorphone 0.5 MG/0.5 ML SYRINGE IVP PRN ×2 (09:28→09:37)
--- NOTE | 2020-07-06 09:35 | XR ---
EXAMINATION TYPE: XR Hip Limited RT DATE OF EXAM: 07/06/2020 CLINICAL HISTORY: Right hip pain and osteoarthritis. TECHNIQUE: Single AP portable view of right hip is obtained immediately postoperatively. COMPARISON: ] Hip x-ray March 24, 2020. FINDINGS: Metallic hardware from total right hip arthroplasty is seen and appears satisfactory in ali gnment and position. There is evidence of recent surgery with subcutaneous gas noted surrounding are a. IMPRESSION: Metallic hardware from right hip arthroplasty is satisfactory in position.
[2020-07-06] MEDS ORDERED: MECLIZINE 12.5 MG TAB PO PRN (10:09)
[2020-07-06] MEDS: SODIUM CHLORIDE 0.9% 1,000 ML IV SCH ×3 (10:44→21:30)
--- NOTE | 2020-07-06 11:02 | P.CONS ---
History of Present Illness - Reason for Consult Consult date: 07/06/20 medical management Requesting physician: Anil Fletcher - History of Present Illness HISTORY OF PRESENT ILLNESS This is a 65-year-old male patient of Dr. Moore with past medical history of diabetes mellitus type 2, hypertension, hyperlipidemia, osteoarthritis, occasional vertigo. Patient has been brought in to the hospital under the care of Dr. Fletcher status post anterior approach right total hip arthroplasty, postop day 0. Patient states the pain is well controlled. Blood pressure is controlled. He denies having any nausea or vomiting. His been sta rted on clear liquids. REVIEW OF SYSTEMS Constitutional: No fever, no chills, no night sweats. No weight change. No weakness, fatigue or lethargy. No daytime sleepiness. EENT: No headache. No blurred vision or double vision, no loss of vision. No loss of Hearing, no ringing in the ears, no dizziness. No nasal drainage or congestion. No epistaxis. No sore throat. Lungs: No shortness of breath, cough, no sputum production. No wheezing. Cardiovascular: No chest pain, no lower extremity edema. No palpitations. No paroxysmal nocturnal dyspnea. No orthopnea. No lightheadedness or dizziness. No syncopal episodes. Abdominal: No abdominal pain. No nausea, vomiting. No diarrhea. No constipation. No bloody or tarry stools. No loss of appetite. Genitourinary: No dysuria, increased frequency, urgency. No urinary retention. Musculoskeletal: No myalgias. No muscle weakness, no gait dysfunction, no frequent falls. No back pain. No neck pain. Integumentary: No wounds, no lesions. No rash or pruritus. No unusual bruising. No change in hair or nails. Neurologic: No aphasia. No facial droop. No change in mentation. No head injury. No headache. No paralysis. No paresthesia. Psychiatric: No depression. No anxiety. No mood swings. Endocrine: No abnormal blood sugars. No weight change. No excessive sweating or thirst. No cold intolerance. SOCIAL HISTORY Patient is a lifelong nonsmoker. No alcohol use, marijuana or street drug use. Patient is and lives at home with his . 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 FAMILY HISTORY Father at age 80 from colon cancer with history of diabetes. Mother is with history of breast cancer. Patient was an only child. He had one daughter with no major medical problems. Second daughter has from brain cancer. PHYSICAL EXAMINATION Gen: This is a 65-year-old male. He is resting in bed and appears to be comfortable and in no acute distress. HEENT: Head is atraumatic, normocephalic. Pupils equal, round. Sclerae is anicteric. NECK: Supple. No JVD. No lymphadenopathy. No thyromegaly. LUNGS: Clear to auscultation. No wheezes or rhonchi. No intercostal retractions. HEART: Regular rate and rhythm. No murmur. ABDOMEN: Soft. Bowel sounds are present. No masses. No tenderness. EXTREMITIES: No pedal edema. No calf tenderness. Dorsalis pedis +2 bilaterally. Patient has small dressing in place to the right anterior hip. No significant swelling or erythema. No breakthrough bleeding or drainage. NEUROLOGICAL: Patient is awake, alert and oriented x3. Cranial nerves 2 through 12 are grossly intact. ASSESSMENT AND PLAN 1. Osteoarthritis status post right total hip arthroplasty, anterior approach. Continue current pain management, PT OT per orthopedics. Incentive spirometry to reduce incidence of atelectasis and hospital-acquired pneumonia. 2. Hypertension. Continue amlodipine 5 mg daily, lisinopril 10 mg daily with parameters. 3. Hyperlipidemia. Continue Lipitor 20 mg daily. 4. Diabetes mellitus type 2. NovoLog scale before meals and at bedtime. Hold Janumet. 5. DVT prophylaxis with aspirin 325 mg twice daily. 6. GI prophylaxis with Protonix. Thank you kindly for this consultation. We will be glad to follow along with you in the care of this patient. Discharge plan: Home with home care. Impression and plan of care have been directed as dictated by the signing physician. Ely Blackwell nurse practitioner acting as scribe for signing physician. Past Medical History Past Medical History: Diabetes Mellitus, Hyperlipidemia, Hypertension, Osteoarthritis (OA) Additional Past Medical History / Comment(s): occasional vertigo History of Any Multi-Drug Resistant Organisms: None Reported Past Surgical History: No Surgical Hx Reported Additional Past Surgical History / Comment(s): colonoscopies Past Anesthesia/Blood Transfusion Reactions: No Reported Reaction Smoking Status: Never smoker - Past Family History Mother Family Medical History: Cancer Additional Family Medical History / Comment(s): Breast Father Family Medical History: Cancer Additional Family Medical History / Comment(s): Colon Medications and Allergies Home Medications Medication Instructions Recorded Confirmed Type Ibuprofen [Motrin] 600 mg PO Q8HR PRN #30 tab 09/25/19 07/06/20 Rx Atorvastatin [Lipitor] 20 mg PO DAILY 05/28/20 07/06/20 History Lisinopril [Prinivil] 10 mg PO DAILY 05/28/20 07/06/20 History amLODIPine [Norvasc] 5 mg PO DAILY 05/28/20 07/06/20 History sitaGLIPtin PHOS/metFORMIN HCL 1 each PO DAILY 05/28/20 07/06/20 History [Janumet 50-500 mg Tablet] Aspirin 81 mg PO DAILY 06/30/20 07/06/20 History Meclizine [Antivert] 12.5 mg PO TID PRN 06/30/20 07/06/20 History Multivitamins, Thera [Multivitamin 1 tab PO DAILY 06/30/20 07/06/20 History (formulary)] Saw [place] 500 mg PO DAILY 06/30/20 07/06/20 History Allergies Allergy/AdvReac Type Severity Reaction Status Date / Time Penicillins Allergy Anaphylaxis Verified 07/06/20 05:58 Sulfa (Sulfonamide Allergy Anaphylaxis Verified 07/06/20 05:58 Antibiotics) Physical Exam Vitals: Vital Signs Temp Pulse Resp BP Pulse Ox 07/06/20 10:15 97.8 F 100 16 125/78 95 07/06/20 09:48 97 16 110/52 99 07/06/20 09:33 98 16 119/58 98 07/06/20 09:18 92 16 129/59 98 07/06/20 09:03 96.9 F L 98 12 124/70 99 07/06/20 06:03 98.0 F 92 16 124/66 98 Intake and Output 07/05/20 07/06/20 07/06/20 22:59 06:59 14:59 Intake Total 100 1257 Output Total 350 Balance 100 907 Intake: IV 100 1257 Output: Estimated Blood Loss 350 Other: Weight 108.5 kg Results Labs: Abnormal Lab Results - Last 24 Hours (Table) 07/06/20 07/06/20 Range/Units 06:11 09:20 POC Glucose (mg/dL) 129 H 175 H (75-99) mg/dL
[2020-07-06 12:07] LABS: Glucose,Whole Blood 191 mg/dL (75-99)
[2020-07-06] MEDS: INSULIN ASPART (NovoLOG) 100 UNIT/ML VIAL SQ SCH ×3 (12:31→21:47)
[2020-07-06] MEDS: CLINDAMYCIN 900 MG in DEXTROSE 5% IN WATER 50 ML IVPB SCH ×2 (15:42)
[2020-07-06] MEDS ORDERED: CLINDAMYCIN 900 MG in DEXTROSE 5% IN WATER 50 ML IVPB SCH ×2 (16:00)
[2020-07-06 17:09] LABS: Glucose,Whole Blood 168 mg/dL (75-99)
[2020-07-06] MEDS ORDERED: ACETAMINOPHEN TAB 325 MG TAB PO STA (18:27)
[2020-07-06] MEDS ORDERED: TAMSULOSIN 0.4 MG CAP.ER.24H PO SCH (20:00)
[2020-07-06] MEDS ORDERED: SENNOSIDES-DOCUSATE SODIUM 1 EACH TAB PO SCH (21:00)
[2020-07-06 21:35] LABS: Glucose,Whole Blood 189 mg/dL (75-99)
[2020-07-07] MEDS: CLINDAMYCIN 900 MG in DEXTROSE 5% IN WATER 50 ML IVPB SCH ×2
[2020-07-07] MEDS: HYDROcodone/APAP 5-325MG 1 EACH TAB PO PRN ×3 (01:37→11:32)
[2020-07-07 03:09] VITALS: RESP 18
[2020-07-07 06:11] LABS: Basophils % (A) 0 %; Eosinophils % (A) 0 %; HCT 35.9 % (39.0-53.0); HGB 12.1 gm/dL (13.0-17.5); Lymphocytes # (A) 1.4 k/uL (1.0-4.8); Lymphocytes % (A) 13 %; MCH 31.6 pg (25.0-35.0); MCHC 33.8 g/dL (31.0-37.0); MCV 93.6 fL (80.0-100.0); Mean Platelet Volume 6.9; Monocytes # (A) 0.8 k/uL (0-1.0); Monocytes % (A) 8 %; Neutrophils # (A) 7.9 k/uL (1.3-7.7); Neutrophils % (A) 77 %; Platelet Count 214 k/uL (150-450); RBC 3.83 m/uL (4.30-5.90); RDW 12.6 % (11.5-15.5); WBC 10.3 k/uL (3.8-10.6)
[2020-07-07] MEDS: LACTATED RINGERS 1,000 ML IV SCH (06:29)
[2020-07-07 07:03] LABS: Glucose,Whole Blood 142 mg/dL (75-99)
[2020-07-07] MEDS ORDERED: PANTOPRAZOLE 40 MG TABLET PO SCH (07:30)
[2020-07-07 07:37] VITALS: BP 134/77; PULSE 110; TEMP 98.3
[2020-07-07] MEDS: INSULIN ASPART (NovoLOG) 100 UNIT/ML VIAL SQ SCH (07:38)
--- NOTE | 2020-07-07 08:43 | P.DS ---
Providers Expected date of discharge: 07/07/20 Attending physician: Anil Fletcher Consults: 07/06/20 07:07 Consult Physician Routine Consulting Provider: Panfilo Adame Reason/Comments: medical management Do you want consulting provider notified?: Yes Primary care physician: Panfilo Adame - Discharge Diagnosis(es) (1) S/P total hip arthroplasty Current Visit: Yes Status: Acute (2) Osteoarthritis of right hip Current Visit: Yes Status: Acute Hospital Course: This is a 65-year-old male with known history of degenerative arthritis of the right hip. The patient presents for evaluation. After discussion and consideration patient elects to proceed with total hip arthroplasty. The patient is seen preoperatively by Dr. Fletcher and medically cleared for surgery by their primary care physician. Patient is admitted to [facility] on 07/06/2020 for total hip arthroplasty. The procedures performed without complication or sequelae. The patient is doing well postoperatively. Labs and vital signs are stable on day of discharge. On day of discharge patient's hip incision is healing well. There is minimal erythema. There is no drainage noted at this time. There is minimal soft tissue swelling to the hip and thigh. Patient has full foot and ankle motion without difficulty or pain. Calf is soft and nontender to palpation. Neurovascular status to the right lower extremity is intact. Patient is [facility]char [facility] home in good condition. Opioid start talking form is reviewed and signed at patient bedside. Please see med rec for accurate list of home medications. Plan - Discharge Summary Discharge Rx Participant: Yes New Discharge Prescriptions: New Tamsulosin [Flomax] 0.4 mg PO PC-SUPPER #14 cap.er.24h Sennosides-Docusate Sodium [Senokot-S] 2 each PO HS tab Aspirin 325 mg PO BID #60 tab HYDROcodone/APAP 5-325MG [[place] 5-325] 1 - 2 tab PO Q6HR PRN #48 tab PRN Reason: Pain Sennosides [Senokot] 2 tab PO DAILY PRN #60 tablet PRN Reason: Constipation Continue Ibuprofen [Motrin] 600 mg PO Q8HR PRN #30 tab PRN Reason: Pain sitaGLIPtin PHOS/metFORMIN HCL [Janumet 50-500 mg Tablet] 1 each PO DAILY amLODIPine [Norvasc] 5 mg PO DAILY Lisinopril [Prinivil] 10 mg PO DAILY Atorvastatin [Lipitor] 20 mg PO DAILY Multivitamins, Thera [Multivitamin (formulary)] 1 tab PO DAILY Aspirin 81 mg PO DAILY Meclizine [Antivert] 12.5 mg PO TID PRN PRN Reason: Vertigo Saw [place] 500 mg PO DAILY #0 Discharge Medication List Ibuprofen [Motrin] 600 mg PO Q8HR PRN #30 tab 09/25/19 [Rx] Atorvastatin [Lipitor] 20 mg PO DAILY 05/28/20 [History] Lisinopril [Prinivil] 10 mg PO DAILY 05/28/20 [History] amLODIPine [Norvasc] 5 mg PO DAILY 05/28/20 [History] sitaGLIPtin PHOS/metFORMIN HCL [Janumet 50-500 mg Tablet] 1 each PO DAILY 05/28/20 [History] Aspirin 81 mg PO DAILY 06/30/20 [History] Meclizine [Antivert] 12.5 mg PO TID PRN 06/30/20 [History] Multivitamins, Thera [Multivitamin (formulary)] 1 tab PO DAILY 06/30/20 [History] Aspirin 325 mg PO BID #60 tab 07/07/20 [Rx] HYDROcodone/APAP 5-325MG [[place] 5-325] 1 - 2 tab PO Q6HR PRN #48 tab 07/07/20 [Rx] Saw [place] 500 mg PO DAILY #0 07/07/20 [Rx] Sennosides [Senokot] 2 tab PO DAILY PRN #60 tablet 07/07/20 [Rx] Sennosides-Docusate Sodium [Senokot-S] 2 each PO HS tab 07/07/20 [Rx] Tamsulosin [Flomax] 0.4 mg PO PC-SUPPER #14 cap.er.24h 07/07/20 [Rx] Follow up Appointment(s)/Referral(s): Panfilo Adame MD [Primary Care Provider] - 1 Week Anil Fletcher DO [Doctor of Osteopathic Medicine] - 2 Weeks Activity/Diet/Wound Care/Special Instructions: Weightbearing as tolerated with walker. Leave dressing intact. Dressing may be removed by home care nurse or by patient in 10 days. May shower with dressing on. Please take aspirin 325mg twice daily for 30 days to prevent blood clots. Recommend use of compression stockings daily until follow up to help prevent swelling and blood clots. May remove at night before sleeping. Please follow-up with [facility] in 2 weeks and call with any questions or concerns, . Discharge Disposition: HOME WITH HOME HEALTH SERVICES
[2020-07-07] MEDS ORDERED: lisinopriL 10 MG TAB PO SCH (09:00)
[2020-07-07] MEDS ORDERED: LINAGLIPTIN 5 MG TABLET PO SCH (09:00)
[2020-07-07] MEDS ORDERED: ASPIRIN 325 MG TAB PO SCH (09:00)
[2020-07-07] MEDS ORDERED: ATORVASTATIN 20 MG TAB PO SCH (09:00)
[2020-07-07] MEDS ORDERED: NON FORMULARY DRUG (Sitagliptin Phos/Metformin Hcl [Janumet 50-500 Mg Tablet] 1 EACH Table PO SCH (09:00)
[2020-07-07] MEDS ORDERED: amLODIPine 5 MG TAB PO SCH (09:00)
[2020-07-07] MEDS ORDERED: metFORMIN 500 MG TAB PO SCH (09:00)
[2020-07-07] MEDS ORDERED: MELOXICAM 7.5 MG TAB PO SCH (09:00)
[2020-07-07] MEDS: SODIUM CHLORIDE 0.9% 1,000 ML IV SCH (09:23)
--- NOTE | 2020-07-07 13:59 | P.PN ---
Subjective Progress Note Date: 07/07/20 HISTORY OF PRESENT ILLNESS This is a 65-year-old male patient of Dr. Moore with past medical history of diabetes mellitus type 2, hypertension, hyperlipidemia, osteoarth ritis, occasional vertigo. Patient has been brought in to the hospital under the care of Dr. Fletcher status post anterior approach right total hip arthroplasty, postop day 0. Patient states the pain is well controlled. Blood pressure is controlled. He denies having any nausea or vomiting. His been started on clear liquids. 07/07: Last evening, patient had difficulty with urinary retention and Flomax was started. Patient states that he has been able to void without difficulty today. He anticipates discharge home later today. Flomax prescription has been sent to his pharmacy with plan to take this for 14 days, hold mohsen hyatt while on Flomax. Patient has been afebrile, initial heart rate this morning 110, blood pressure 134/77, pulse ox 96% on room air. Repeat blood work reveals WBC 10.3, hemoglobin 12.1, platelet count 214. Blood sugars running between 140-189. Patient will resume his home diabetic medications once discharged. REVIEW OF SYSTEMS Constitutional: No fever, no chills, no night sweats. No weight change. No weakness, fatigue or lethargy. EENT: No headache. No blurred vision or double vision, no loss of vision. No loss of Hearing, no ringing in the ears, no dizziness. No nasal drainage or congestion. No epistaxis. No sore throat. Lungs: No shortness of breath, cough, no sputum production. No wheezing. Cardiovascular: No chest pain, no lower extremity edema. No palpitations. No paroxysmal nocturnal dyspnea. No orthopnea. No lightheadedness or dizziness. No syncopal episodes. Abdominal: No abdominal pain. No nausea, vomiting. No diarrhea. No constipation. No bloody or tarry stools. No loss of appetite. Genitourinary: No dysuria, increased frequency, urgency. No urinary retention. Musculoskeletal: No myalgias. No muscle weakness, no gait dysfunction, no frequent falls. No back pain. No neck pain. Integumentary: No wounds, no lesions. No rash or pruritus. No unusual bruising. No change in hair or nails. Neurologic: No aphasia. No facial droop. No change in mentation. No head injury. No headache. No paralysis. No paresthesia. Psychiatric: No depression. No anxiety. No mood swings. Endocrine: No abnormal blood sugars. No weight change. No excessive sweating or thirst. No cold intolerance. PHYSICAL EXAMINATION Gen: This is a 65-year-old male. He is resting in bed and appears to be comfortable and in no acute distress. HEENT: Head is atraumatic, normocephalic. Pupils equal, round. Sclerae is anicteric. NECK: Supple. No JVD. No lymphadenopathy. No thyromegaly. LUNGS: Clear to auscultation. No wheezes or rhonchi. No intercostal retractions. HEART: Regular rate and rhythm. No murmur. ABDOMEN: Soft. Bowel sounds are present. No masses. No tenderness. EXTREMITIES: No pedal edema. No calf tenderness. Dorsalis pedis +2 bilaterally. Patient has small dressing in place to the right anterior hip. No significant swelling or erythema. No breakthrough bleeding or drainage. NEUROLOGICAL: Patient is awake, alert and oriented x3. Cranial nerves 2 through 12 are grossly intact. ASSESSMENT AND PLAN 1. Osteoarthritis status post right total hip arthroplasty, anterior approach. Continue current pain management, PT OT per orthopedics. Incentive spirometry to reduce incidence of atelectasis and hospital-acquired pneumonia. 2. Hypertension. Continue amlodipine 5 mg daily, lisinopril 10 mg daily with parameters. 3. Hyperlipidemia. Continue Lipitor 20 mg daily. 4. Diabetes mellitus type 2. NovoLog scale before meals and at bedtime. Hold Janumet-patient will resume at home. 5. DVT prophylaxis with aspirin 325 mg twice daily. 6. GI prophylaxis with Protonix. 7. Urinary retention. Flomax 0.4 mg daily 14 days Thank you kindly for this consultation. We will be glad to follow along with you in the care of this patient. Discharge plan: Home with home care. Impression and plan of care have been directed as dictated by the signing physician. Ely Blackwell nurse practitioner acting as scribe for signing physician. Objective - Vital Signs Vital signs: Vital Signs Temp 98.3 F 07/07/20 07:00 Pulse 110 H 07/07/20 07:00 Resp 18 07/07/20 07:00 BP 134/77 07/07/20 07:00 Pulse Ox 96 07/07/20 07:00 Intake & Output 07/06/20 07/07/20 07/07/20 18:59 06:59 18:59 Intake Total 1657 1590 Output Total 875 Balance 782 1590 Weight 108.5 kg Intake: IV 1257 Intake, IV Titration 890 Amount Clindamycin 900 mg In 50 Dextrose 5% in Water 50 ml @ 56 mls/hr IVPB Q8HR KIERA Rx#:[id number] Sodium Chloride 0.9% 1, 840 000 ml @ 70 mls/hr IV . [id number] KIERA Rx#:[id number] Oral 400 700 Output: Urine 525 Straight 500 Estimated Blood Loss 350 Other: # Voids 1 1 - Labs CBC & Chem 7: 07/07/20 05:22 Labs: Abnormal Lab Results - Last 24 Hours (Table) 07/06/20 07/06/20 07/06/20 Range/Units 09:20 12:03 17:02 RBC (4.30-5.90) m/uL Hgb (13.0-17.5) gm/dL Hct (39.0-53.0) % Neutrophils # (1.3-7.7) k/uL POC Glucose (mg/dL) 175 H 191 H 168 H (75-99) mg/dL 07/06/20 07/07/20 07/07/20 Range/Units 21:35 05:22 07:02 RBC 3.83 L (4.30-5.90) m/uL Hgb 12.1 L (13.0-17.5) gm/dL Hct 35.9 L (39.0-53.0) % Neutrophils # 7.9 H (1.3-7.7) k/uL POC Glucose (mg/dL) 189 H 142 H (75-99) mg/dL
== END 2020-07-07 11:42 | disposition home health service (06) ==
LOC: OR 05:31 → 4SSUR 09:27 → OR 07-07 11:42
PROVIDERS: ATTEND Orthopaedic Surgery
DX: M16.0 Bilateral primary osteoarthritis of hip (principal); M25.751 Osteophyte, right hip; I10 Essential (primary) hypertension; E78.5 Hyperlipidemia, unspecified; E11.9 Type 2 diabetes mellitus without complications; Z88.2 Allergy status to sulfonamides; Z88.0 Allergy status to penicillin; Z79.1 Long term (current) use of non-steroidal anti-inflammatories (NSAID); Z79.82 Long term (current) use of aspirin; Z79.84 Long term (current) use of oral hypoglycemic drugs; Z79.899 Other long term (current) drug therapy; Z98.890 Other specified postprocedural states; Z83.3 Family history of diabetes mellitus; Z82.49 Family history of ischemic heart disease and other diseases of the circulatory system; Z80.0 Family history of malignant neoplasm of digestive organs; Z80.3 Family history of malignant neoplasm of breast; Z80.8 Family history of malignant neoplasm of other organs or systems
CPT/HCPCS: 97116; 97110; 97161; 97165; 86900; 86901; 85025; 86850; 88300; 73501 ×2; 27130; C1776; J2250; J0171; J0330; J1100; J2405; J0690; J2001; J3010; J1885; J2795; J2370; J2704; J0735; J1170

== ENCOUNTER → 2020-10-12 | Outpatient (CLI) | payer BC ==
[2020-10-12 07:38] LABS: Basophils % (A) 1 %; Eosinophils # (A) 0.1 k/uL (0-0.7); Eosinophils % (A) 2 %; HCT 46.1 % (39.0-53.0); Lymphocytes # (A) 1.6 k/uL (1.0-4.8); Lymphocytes % (A) 28 %; MCH 29.4 pg (25.0-35.0); MCHC 32.5 g/dL (31.0-37.0); MCV 90.5 fL (80.0-100.0); Mean Platelet Volume 6.7; Monocytes # (A) 0.4 k/uL (0-1.0); Monocytes % (A) 7 %; Neutrophils # (A) 3.4 k/uL (1.3-7.7); Neutrophils % (A) 61 %; Platelet Count 263 k/uL (150-450); RDW 13.4 % (11.5-15.5); WBC 5.6 k/uL (3.8-10.6)
[2020-10-12 11:58] LABS: Albumin 4.9 g/dL (3.80-4.90); Albumin/Globulin Ratio 2.58 (1.60-3.17); Anion Gap 6.3 mmol/L (4.00-12.00); BUN/Creat Ratio 22.22 Ratio (12.00-20.00); Calcium 9.5 mg/dL (8.7-10.3); Carbon Dioxide 27.7 mmol/L (21.6-31.8); Chol/HDL Ratio 3.32; Globulin 1.9 g/dL (1.6-3.3); LDL Cholesterol,Calculated 90.8 mg/dL (0.0-131.0); Non-African American GFR(CKD) 90.6 (60.0-200.0); Potassium 4.5 mmol/L (3.5-5.5); Total Bilirubin 0.4 mg/dL (0.3-1.2); Total Protein 6.8 g/dL (6.2-8.2); VLDL Calculation 18.2 mg/dL (5.00-40.00)
[2020-10-12 17:25] LABS: Hemoglobin A1C 6.2 % (4.0-6.0)
== END | disposition home or self-care (01) ==
LOC: LABWHC1 06:59
PROVIDERS: ATTEND Internal Medicine Geriatric Medicine
DX: E11.65 Type 2 diabetes mellitus with hyperglycemia (principal); E78.2 Mixed hyperlipidemia; R00.1 Bradycardia, unspecified
CPT/HCPCS: 36415; 80053; 80061; 83036; 84443; 85025

== ENCOUNTER 2020-10-27 15:53 | Emergency (ER) | payer BC ==
[2020-10-27 16:04] VITALS: BP 146/81; PULSE 88; TEMP 99.8
[2020-10-27] MEDS ORDERED: ACETAMINOPHEN TAB 325 MG TAB PO STA (16:13)
[2020-10-27 16:27] VITALS: RESP 18
--- NOTE | 2020-10-27 16:27 | XR ---
EXAMINATION TYPE: XR chest 2V DATE OF EXAM: 10/27/2020 COMPARISON: Chest x-ray September 25, 2019 HISTORY: Cough and fever. Possible covid 19 infection. TECHNIQUE: Frontal and lateral views of the chest are obtained. FINDINGS: Improved inspiration on current study. There is no suspicious new focal air space opacity, pleural effusion, or pneumothorax seen. The cardiac silhouette size remains within normal limits. M ultilevel spurring in thoracic spine redemonstrated. IMPRESSION: No new suspicious acute pulmonary process.
--- NOTE | 2020-10-27 16:47 | ED ---
Recheck HPI - General Chief Complaint: Recheck/Abnormal Lab/Rx Stated Complaint: low oxygen Time Seen by Provider: 10/27/20 16:06 Source: patient Mode of arrival: ambulatory Limitations: no limitations - History of Present Illness Initial Comments: 65-year-old male presenting today for chief complaint of low oxygen saturation reading. Patient states he was diagnosed yesterday with covert. He states in exposure at work. Patient states he's had slight dry cough otherwise no chest pain or shortness of breath he states he is unaware if he's had fevers she states he has taken ibuprofen for body aches. Patient states she was told by his primary care provider to monitor his oxygen saturation so he brought at home oximeter. He states he's been running at 96% all day he states he took one measurement at 88% and because this was under 90 he came to the ER for evaluation. Patient states that he did not feel like her short of breath at that time he states he is not ambulating. Patient states he did not recheck the measurement or change fingers. Remaining review of systems negative - Related Data Home Medications Medication Instructions Recorded Confirmed Atorvastatin [Lipitor] 20 mg PO DAILY@129905/28/20 10/27/20 Lisinopril [Prinivil] 10 mg PO DAILY@129905/28/20 10/27/20 sitaGLIPtin PHOS/metFORMIN HCL 1 tab PO DAILY@129905/28/20 10/27/20 [Janumet 50-500 mg Tablet] Aspirin 81 mg PO DAILY@129906/30/20 10/27/20 Meclizine [Antivert] 12.5 mg PO TID PRN 06/30/20 10/27/20 Multivitamins, Thera [Multivitamin 1 tab PO DAILY@129906/30/20 10/27/20 (formulary)] Ibuprofen [Motrin] 600 mg PO BID PRN 10/27/20 10/27/20 Ondansetron Odt [Zofran Odt] 4 mg PO Q8HR PRN 10/27/20 10/27/20 Saw [place] 450mg 450 mg PO DAILY@129910/27/20 10/27/20 amLODIPine [Norvasc] 5 mg PO DAILY@1300 10/27/20 10/27/20 Allergies Allergy/AdvReac Type Severity Reaction Status Date / Time Penicillins Allergy Anaphylaxis Verified 10/27/20 16:49 Sulfa (Sulfonamide Allergy Anaphylaxis Verified 10/27/20 16:49 Antibiotics) Review of Systems ROS Statement: Those systems with pertinent positive or pertinent negative responses have been documented in the HPI. ROS Other: All systems not noted in ROS Statement are negative. Past Medical History Past Medical History: Diabetes Mellitus, Hyperlipidemia, Hypertension Additional Past Medical History / Comment(s): vertigo, arthritis. History of Any Multi-Drug Resistant Organisms: None Reported Past Surgical History: No Surgical Hx Reported Additional Past Surgical History / Comment(s): Colonoscopy. Past Anesthesia/Blood Transfusion Reactions: No Reported Reaction Past Psychological History: No Psychological Hx Reported Smoking Status: Never smoker Past Alcohol Use History: None Reported Past Drug Use History: None Reported - Past Family History Mother Family Medical History: Cancer Additional Family Medical History / Comment(s): Breast Father Family Medical History: Cancer Additional Family Medical History / Comment(s): Colon General Exam - General Exam Comments Initial Comments: General: The patient is awake and alert, in no distress Eye: +3 mm pupils are equal, round and reactive to light, extra-ocular movements are intact. No nystagmus. There is normal conjunctiva bilaterally. No signs of icterus. Ears, nose, mouth and throat: There are moist mucous membranes and no oral lesions. Neck: The neck is supple, there is no tenderness or JVD. Cardiovascular: There is a regular rate and rhythm. No murmur, rub or gallop is appreciated. Respiratory: Lungs are clear to auscultation, respirations are non-labored, breath sounds are equal. No wheezes, stridor, rales, or rhonchi. Gastrointestinal: Soft, non-distended, non-tender abdomen without masses or organomegaly noted. There is no rebound or guarding present. Musculoskeletal: Normal ROM, no tenderness. Strength 5/5. Sensation intact. Radial pulses equal bilaterally 2+. Neurological: A&O x 3. CN II-XII intact grossly, There are no obvious motor or sensory deficits. Coordination appears grossly intact. Speech is normal. Skin: Skin is warm and dry and no rashes or lesions are noted. Psychiatric: Cooperative, appropriate mood & affect, normal judgment. Limitations: no limitations Course Vital Signs 10/27/20 10/27/20 16:00 16:25 Temperature 99.8 F H Pulse Rate 88 Respiratory 16 18 Rate Blood Pressure 146/81 O2 Sat by Pulse 96 Oximetry Medical Decision Making - Medical Decision Making Lungs clear patient consistently saturating at 96% on room air he denies a chest pain shortness of breath chest x-ray clear of infiltrate at this time feel he stated for discharge with the continued at home oxygen saturation monitoring nad pcp f/u. has steroid infusion for covid prescribed by pcp for tomorrow. Disposition Clinical Impression: COVID-19 Disposition: HOME SELF-CARE Condition: Good Instructions (If sedation given, give patient instructions): Upper Respiratory Infection (ED) Additional Instructions: Please use medication as discussed. Please follow-up with family doctor in the next 2 days.. Please return to emergency room if the symptoms increase or worsen or for any other concerns. Is patient prescribed a controlled substance at d/c from ED?: No Referrals: Panfilo Adame MD [Primary Care Provider] - 1-2 days Time of Disposition: 16:46
== END 2020-10-27 17:08 | disposition home or self-care (01) ==
LOC: EC 15:53
DX: U07.1 COVID-19 (principal); E11.9 Type 2 diabetes mellitus without complications; I10 Essential (primary) hypertension; E78.5 Hyperlipidemia, unspecified; Z79.899 Other long term (current) drug therapy; Z79.84 Long term (current) use of oral hypoglycemic drugs; Z79.82 Long term (current) use of aspirin; Z88.0 Allergy status to penicillin; Z88.2 Allergy status to sulfonamides
CPT/HCPCS: 71046; 99283

== ENCOUNTER → 2021-05-26 | Outpatient (CLI) | payer BC ==
[2021-05-26 11:15] LABS: Basophils # (A) 0.03 X 10*3/uL (0.00-0.10); Basophils % (A) 0.5 %; Eosinophils # (A) 0.14 X 10*3/uL (0.04-0.35); Eosinophils % (A) 2.3 %; HCT 45.5 % (39.6-50.0); HGB 14.8 g/dL (13.0-17.0); Lymphocytes # (A) 1.67 X 10*3/uL (0.90-5.00); Lymphocytes % (A) 27.6 %; MCH 30.2 pg (27.0-32.0); MCHC 32.5 g/dL (32.0-37.0); MCV 92.9 fL (80.0-97.0); Mean Platelet Volume 9.5 fL (9.5-12.2); Monocytes # (A) 0.69 X 10*3/uL (0.20-1.00); Monocytes % (A) 11.4 %; Neutrophils % (A) 57.9 %; Platelet Count 283 X 10*3/uL (140-440); RDW 13.1 % (11.5-14.5); WBC 6.05 X 10*3/uL (4.50-10.00)
[2021-05-26 12:53] LABS: Chol/HDL Ratio 3.28; LDL Cholesterol,Calculated 84.8 mg/dL (0.0-131.0); VLDL Calculation 22.2 mg/dL (5.00-40.00)
[2021-05-26 12:54] LABS: African American GFR (CKD) 91.8 (60.0-200.0); Albumin 4.7 g/dL (3.80-4.90); Albumin/Globulin Ratio 2.14 (1.60-3.17); Anion Gap 8.7 mmol/L (4.00-12.00); Calcium 9.3 mg/dL (8.7-10.3); Carbon Dioxide 25.3 mmol/L (21.6-31.8); Globulin 2.2 g/dL (1.6-3.3); Non-African American GFR(CKD) 79.2 (60.0-200.0); Potassium 5.3 mmol/L (3.5-5.5); Total Bilirubin 0.5 mg/dL (0.2-1.2); Total Protein 6.9 g/dL (6.2-8.2)
[2021-05-26 14:47] LABS: Hemoglobin A1C 6.4 % (4.0-6.0)
== END | disposition home or self-care (01) ==
LOC: LABWHC1 06:57
PROVIDERS: ATTEND Internal Medicine Geriatric Medicine
DX: E11.65 Type 2 diabetes mellitus with hyperglycemia (principal); Z86.16 Personal history of COVID-19
CPT/HCPCS: 36415; 80053; 80061; 83036; 84443; 85025

== ENCOUNTER → 2021-10-20 | Outpatient (CLI) | payer BC ==
--- NOTE | 2021-10-20 15:37 | XR ---
EXAMINATION TYPE: XR chest 2V DATE OF EXAM: 10/20/2021 COMPARISON: 10/27/2020 INDICATION: Bronchitis TECHNIQUE: Frontal and lateral views of the chest are obtained. FINDINGS: The heart size is normal. The pulmonary vasculature is normal. The lungs are clear. Hyperinflation flattening the diaphragms is present compatible with COPD. Flowin g calcifications along the anterior spinal column. Correlate for DISH IMPRESSION: 1. No acute pulmonary process. 2. COPD
== END | disposition home or self-care (01) ==
LOC: RADXRMAIN 15:17
PROVIDERS: ATTEND Internal Medicine Geriatric Medicine
DX: J44.9 Chronic obstructive pulmonary disease, unspecified (principal)
CPT/HCPCS: 71046

== ENCOUNTER → 2022-01-23 | Outpatient (CLI) | payer BC ==
[2022-01-24 00:06] LABS: ALT 27 U/L (10-49); AST 20 U/L (14-35); African American GFR (CKD) 97.7 (60.0-200.0); Albumin 4.8 g/dL (3.8-4.9); Albumin/Globulin Ratio 2.06 (1.60-3.17); Alkaline Phosphatase 82 U/L (41-126); BUN/Creat Ratio 16.95 Ratio (12.00-20.00); Blood Urea Nitrogen 16.1 mg/dL (9.0-27.0); Calcium 9.5 mg/dL (8.7-10.3); Carbon Dioxide 23.1 mmol/L (20.0-27.5); Chloride 102 mmol/L (96-109); Globulin 2.3 g/dL (1.6-3.3); Glucose 117 mg/dL (70-110); LDL Cholesterol,Calculated 112.9 mg/dL (0.0-131.0); Non-African American GFR(CKD) 84.3 (60.0-200.0); Potassium 4.8 mmol/L (3.5-5.5); Sodium 137 mmol/L (135-145); Total Protein 7.1 g/dL (6.2-8.2)
[2022-01-24 00:46] LABS: Basophils # (A) 0.02 X 10*3/uL (0.00-0.10); Basophils % (A) 0.3 %; Eosinophils % (A) 3.5 %; HGB 14.8 g/dL (13.0-17.0); Immature Grans, Automated 0.3 %; Lymphocytes # (A) 1.51 X 10*3/uL (0.90-5.00); Lymphocytes % (A) 26.4 %; MCH 30.6 pg (27.0-32.0); MCHC 32.2 g/dL (32.0-37.0); Mean Platelet Volume 9.4 fL (9.5-12.2); Monocytes # (A) 0.55 X 10*3/uL (0.20-1.00); Monocytes % (A) 9.6 %; NRBC Per 100 WBC 0 /100 WBCS (0.0-0.0); Neutrophils # (A) 3.43 X 10*3/uL (1.80-7.70); Neutrophils % (A) 59.9 %; Platelet Count 286 X 10*3/uL (140-440); RBC 4.84 X 10*6/uL (4.40-5.60); RDW 12.9 % (11.5-14.5); WBC 5.73 X 10*3/uL (4.50-10.00)
[2022-01-24 19:40] LABS: Microalbumin Creatinine Ratio <30 mg/g Creat (0-30)
== END | disposition home or self-care (01) ==
LOC: LABWHC1 06:51
PROVIDERS: ATTEND Internal Medicine Geriatric Medicine
DX: E11.65 Type 2 diabetes mellitus with hyperglycemia (principal); E78.2 Mixed hyperlipidemia; Z86.16 Personal history of COVID-19
CPT/HCPCS: 36415; 80053; 80061; 82043; 82570; 83036; 84443; 85025